=== PATIENT | male | born 1980 | race Caucasian/White ===

== ENCOUNTER 2022-10-26 11:39 | Emergency (ER) | payer BC, MEDICAID, SELFPAY ==
[2022-10-26 12:49] LABS: #Eosinphils 0.2 10x3/uL (0.0-0.5); #Monocytes 0.5 10x3/uL (0.0-1.1); #Neutrophils 3.5 10x3/uL (1.5-8.4); %Basophils 0.6 % (0.0-2.0); %Eosinophils 3.2 % (0.0-6.0); %Lymphocytes 13.7 % (18.0-47.0); %Monocytes 10.5 % (0.0-10.0); %Neutrophils 71.4 % (40.0-75.0); Hematocrit 44.8 % (38.8-50.0); Hemoglobin 15.4 g/dL (13.5-17.5); Mean Corpuscular HGB CONC 34.4 g/dL (32.0-36.0); Mean Corpuscular Volume 87.2 fl (81.2-95.1); Mean Platelet Volume 9.8 fl (7.4-10.4); Platelet Count 164 10x3/uL (150-450); RBC Distribution Width 13.2 % (11.5-14.5); Red Blood Cell (RBC) Count 5.14 10x6/uL (4.32-5.72)
[2022-10-26 13:04] LABS: ALT (SGPT) 60 U/L (8-55); AST (SGOT) 56 U/L (5-34); Albumin 4.2 g/dL (3.5-5.0); Alkaline Phosphatase 100 U/L (40-110); Anion Gap 17 mmol/L (10-20); BUN (Urea Nitrogen) 8 mg/dL (8.9-20.6); Bilirubin, Total 0.4 mg/dL (0.2-1.2); Calc. Creatinine Clearance 0 mL/min (70-130); Calcium 8.7 mg/dL (7.8-10.44); Carbon Dioxide 19 mmol/L (22-29); Chloride 106 mmol/L (98-107); Estimated GFR 112; Globulin 3.5 g/dL (2.4-3.5); Glucose 214 mg/dL (70-105); Lipase 23 U/L (8-78); Potassium 3.6 mmol/L (3.5-5.1); Protein, Total 7.7 g/dL (6.0-8.3); Sodium 138 mmol/L (136-145)
[2022-10-26] MEDS ORDERED: Ondansetron PF 4 MG/2 ML Vial ONE (13:16)
[2022-10-26] MEDS ORDERED: Ketorolac Tromethamine 30 MG/ML VIAL ONE (13:17)
[2022-10-26 14:13] LABS: Bilirubin Neg (Negative); Blood, Urine 10 (Negative); Clarity Clear (Clear); Glucose, Urine (Dipstick) 50 mg/dL (Negative); Ketone, Urine Negative (Negative); Leukocyte Negative (Negative); Nitrite Negative (Negative); Protein, Urine (Dipstick) 15 mg/dl (Neg-Trace); Specific Gravity, Urine 1.025 (1.005-1.030); Urobilinogen Normal mg/dL (Less than 2)
[2022-10-26 14:56] LABS: Bacteria/HPF Rare-Few HPF (None Seen); CAUTI Indications for Culture Pelvic or flank pain; Mucous/LPF 1+ LPF (<2+); Squamous Epithelial 0-3 HPF (0-3); WBC/HPF 0-3 HPF (0-3)
[2022-10-26 14:58] LABS: Urine Culture Reflex No No
== END 2022-10-26 15:04 | disposition home or self-care (01) ==
LOC: CSHERS 11:39
DX: R10.9 Unspecified abdominal pain (principal)
CPT/HCPCS: 36415; 74176; 80053; 81001; 83690; 85025; 96361; 96374; 96375; J1885; J2405

== ENCOUNTER 2023-07-15 18:20 | Emergency (ER) | payer MEDICAID, OTHER ==
[2023-07-15] MEDS ORDERED: Ketorolac Tromethamine 30 MG (1 mL) VIAL ONE (19:13)
[2023-07-15] MEDS ORDERED: HYDROcodone/Acetaminophen 5/325 mg Tablet ONE (20:14)
== END 2023-07-15 20:16 | disposition home or self-care (01) ==
LOC: CSHERS 18:20
DX: N43.3 Hydrocele, unspecified (principal); M54.50 Low back pain, unspecified; M25.511 Pain in right shoulder
CPT/HCPCS: 72131; 76870; 93976; 96372; J1885